=== PATIENT | male | born 1955 | race Two or more races ===

== ENCOUNTER 2021-11-29 08:45 | Inpatient (IN) | payer OTHER ==
[~2021-11-29] VITALS: Ht 170.2 cm; Wt 102.1 kg
[2021-11-29] MEDS ORDERED: GLIMEPIRIDE4 M1 PO (12:54)
[2021-11-29] MEDS ORDERED: GLUMETZA500 MG PO (12:54)
[2021-11-29] MEDS ORDERED: SYNTHROID88 MCG PO (12:54)
[2021-12-05] MEDS ORDERED: INTESTINEX680 M1 PO ×2 (16:20→16:30)
[2021-12-05] MEDS ORDERED: LEVSIN/SL0.125 MG SL (16:23)
[2021-12-05] MEDS ORDERED: TRAMADOL HCL50 MG PO (16:24)
== END 2021-12-05 22:04 | disposition home or self-care (01) | DRG 330 ==
LOC: O/R 12-01 05:26 → SURH 12-01 05:26
PROVIDERS: ADMIT Surgery; ATTEND Surgery
PROC: 0DBP4ZZ Excision of Rectum, Percutaneous Endoscopic Approach (ICD-10-PCS; 2021-12-01)
PROC: 0DJD8ZZ Inspection of Lower Intestinal Tract, Via Natural or Artificial Opening Endoscopic (ICD-10-PCS; 2021-12-01)
PROC: 0DTN4ZZ Resection of Sigmoid Colon, Percutaneous Endoscopic Approach (ICD-10-PCS; principal; 2021-12-01 07:00)
DX: K57.32 Diverticulitis of large intestine without perforation or abscess without bleeding (principal); N32.1 Vesicointestinal fistula; N39.0 Urinary tract infection, site not specified; R10.9 Unspecified abdominal pain; K64.8 Other hemorrhoids; R19.4 Change in bowel habit; Z20.822 Contact with and (suspected) exposure to COVID-19; E11.9 Type 2 diabetes mellitus without complications; E03.8 Other specified hypothyroidism